=== PATIENT | female | born 1995 ===

== ENCOUNTER 2017-08-09 20:23 | Emergency (ER) | payer OTHER ==
[~2017-08-09] VITALS: Ht 149.9 cm; Wt 42.3 kg
[2017-08-09] MEDS ORDERED: DONNATAL/LIDOCAINE/MAALOX 55 ML BOTTLE PO ONE (22:15)
[2017-08-09 22:28] VITALS: BP 117/77
== END 2017-08-09 22:49 | disposition home or self-care (01) ==
LOC: EMS 20:30
DX: S27.818A Other injury of esophagus (thoracic part), initial encounter (principal); X58.XXXA Exposure to other specified factors, initial encounter; Y93.89 Activity, other specified; Y92.89 Other specified places as the place of occurrence of the external cause; Y99.8 Other external cause status
CPT/HCPCS: 71045; 99283; Z7610